=== PATIENT | male | born 1995 | race Caucasian/White ===

== ENCOUNTER 2018-09-12 10:27 | Emergency (ER) | payer BC ==
[~2018-09-12] VITALS: Ht 167.6 cm; Wt 58.2 kg
[~2018-09-12 10:27] MED LIST: NO MEDS
[2018-09-12 10:54] VITALS: BP 109/63; PULSE 75; RESP 20; Ht 167.6 cm; Wt 58.2 kg
[2018-09-12] MEDS ORDERED: ACETAMINOPHEN 325 MG TAB PO ONE (12:30)
[2018-09-12] MEDS ORDERED: ACET-141 PO (13:15)
--- NOTE | 2018-09-12 13:19 | ERD ---
ER Documentation Chief Complaint Chief Complaint Complains of right foot pain x 3 days HPI 23-year-old male with history of Down syndrome presents with his mother for right foot pain x3 days. Pain is mostly over the right second toe. Mother states that he may have hit something and developed the pain. Patient is unable to rate the pain but he says that is a lot of pain. No modifying factors noted. No treatments tried at home. The injury was unwitnessed by the mother. ROS All systems reviewed and are negative except as per history of present illness. Medications Home Meds Active Scripts Acetaminophen* (Acetaminophen*) 500 MG Extra Strength Tablet, 500 MG PO Q4H PRN for PAIN AND OR ELEVATED TEMP, #30 TAB Prov:SERINA CLAUDIO DO 09/12/18 Reported Medications [No Meds] No Conflict Check 06/17/10 Allergies Allergies: Coded Allergies: No Known Allergies (Verified Allergy, Mild, 06/21/14) PMhx/Soc History of Down syndrome History of Surgery: No Anesthesia Reaction: No Hx Neurological Disorder: No Hx Respiratory Disorders: No Hx Cardiac Disorders: No Hx Psychiatric Problems: No Hx Miscellaneous Medical Probl: Yes (DOWN SYNDROME,SEIZURES) Hx Alcohol Use: No Hx Substance Use: No Hx Tobacco Use: No Smoking Status: Never smoker FmHx Family History: No coronary disease Physical Exam Vitals Vital Signs Date Temp Pulse Resp B/P (MAP) Pulse Ox O2 O2 Flow FiO2 Time Delivery Rate 09/12/18 98.2 75 20 109/63 98 10:54 (78) Physical Exam Const: No acute distress Resp: Clear to auscultation bilaterally Cardio: Regular rate and rhythm, no murmurs, cap refill less than 2 seconds in all toes of the right foot Abd: Soft, non tender, non distended. Normal bowel sounds Skin: No petechiae or rashes Back: No midline or flank tenderness Ext: Right foot second digit bruising, swelling noted, no obvious deformity Neur: Awake and alert, sensation intact over the right foot second digit Psych: Normal Mood and Affect Results 24 hrs Current Medications Medications Dose Sig/Maribel Start Time Status Last (Trade) Ordered Route PRN Stop Time Admin Dose Reason Admin 650 mg ONCE ONCE 09/12/18 DC 09/12/18 Acetaminophen PO 12:30 09/12/18 12:24 (Tylenol 12:31 Tab) Procedures/MDM Medical Decision Making: Differential diagnosis includes but not limited to fracture, dislocation, muscle strain, ligamentous sprain. Patient appeared well on physical exam. There was tenderness over the right foot second digit Patient was neurovascularly intact ED course: Patient was given Tylenol. Symptoms improved with treatment. Imaging: X-ray right foot 3V Interpreted by me: Bones: No fracture Joints: No dislocation Foreign body: None Prescription(s): Patient given prescription for supportive medication(s). Patient advised to follow up with PCP in 1-2 days. Patient advised to return to ED for new or worsening symptoms. Patient stable on discharge from the ED. Disclaimer: Inadvertent spelling and grammatical errors are likely due to EHR/dictation software use and do not reflect on the overall quality of patient care. Also, please note that the electronic time recorded on this note does not necessarily reflect the actual time of the patient encounter. Departure Diagnosis: Primary Impression: Foot pain, right Condition: Fair Patient Instructions: Sprain Foot Referrals: [facility] YOU HAVE RECEIVED A MEDICAL SCREENING EXAM AND THE RESULTS INDICATE THAT YOU DO NOT HAVE A CONDITION THAT REQUIRES URGENT TREATMENT IN THE EMERGENCY DEPARTMENT. FURTHER EVALUATION AND TREATMENT OF YOUR CONDITION CAN WAIT UNTIL YOU ARE SEEN IN YOUR DOCTORS OFFICE WITHIN THE NEXT 1-2 DAYS. IT IS YOUR RESPONSIBILITY TO MAKE AN APPOINTMENT FOR FOLOW-UP CARE. IF YOU HAVE A PRIMARY DOCTOR --you should call your primary doctor and schedule an appointment IF YOU DO NOT HAVE A PRIMARY DOCTOR YOU CAN CALL OUR PHYSICIAN REFERRAL HOTLINE AT IF YOU CAN NOT AFFORD TO SEE A PHYSICIAN YOU CAN CHOSE FROM THE FOLLOWING [facility] CL[facility] [address] [facility]. [facility] [address] [facility] [facility] [address] [facility]. [facility] [address] [facility]. [facility] [address] [facility]. [facility]. [address] Additional Instructions: Call your primary care doctor TOMORROW for an appointment during the next 1-2 days.See the doctor sooner or return here if your condition worsens before your appointment time. Llame al doctor MAANA y rylie mili JOHNNA PARA DENTRO DE 1-2 FULTON.Dgale a la secretaria que nosotros le instruimos hacer esta johnna.Avise o llame si rivera condicin se empeora antes de la johnna. Regresa aqui si peor o no mejor. SERINA CLAUDIO DO September 12, 2018 13:19
== END 2018-09-12 13:37 | disposition home or self-care (01) ==
LOC: FTE 10:27
DX: S90.31XA Contusion of right foot, initial encounter (principal); X58.XXXA Exposure to other specified factors, initial encounter; Y92.9 Unspecified place or not applicable
CPT/HCPCS: 73630; 99283; Z7610